=== PATIENT | female | born 1965 | race African-American/Black ===

== ENCOUNTER → 2016-07-25 | Outpatient (CLI) | payer MEDICARE, MEDICAID, OTHER ==
[~2016-07-25] VITALS: Ht 162.6 cm; Wt 117.0 kg
[~2016-07-25] MED LIST: 00186-0370-20 IH; ACETAMINOPHEN W1 TA6 PO; AMOXICILLIN 50500 MG PO; ASPIRIN 32325 MG/TAB PO; FEROSUL325 MG PO; FERROUS SU325 MG/TAB PO; FERROUS SULFATE65 MG PO; FLEXERIL 1010 MG/TAB PO; GABAPENTIN100 MG PO; GLUCOPHAGE1000 MG PO; GLUCOPHAGE500 MG/TAB PO; HCTZ; HCTZ 25MG TAB25 MG PO; HYDROCHLORTHIAZIDE; KLOR-CON M2020 MEQ PO; LASIX 20MG TABL20 MG PO; LIPITOR 10MG10 MG PO; LOPRESSOR; LOPRESSOR 225 MG/TAB PO; MOBIC 7.5MG7.5 MG PO; NITROQUICK0.4 MG SL; NITROSTAT0.4 MG/TAB SL; NORCO 325 MG-51 TAB PO; NORCO 325 MG-7.1 TAB PO; PHENTERMINE15 MG PO; PROVENTIL0.09 MG/A1 IH; RT ADVAIR 128 DISKUS IH; RT ALBUTER2.5 MG/0.5; RT SPIRIVA18 MCG IH; SINGULAIR 110 MG/TAB PO; TAMOXIFEN CITRA20 MG PO; WELLBUTRIN SR150 M1 PO; XYAL5 MG PO; XYZAL5 MG PO; ZITHROMAX Z PA250 MG PO
[2016-07-25 14:04] VITALS: BP 127/67; PULSE 100
[2016-07-25 16:44] VITALS: BP 127/67; PULSE 100
== END ==
LOC: LIGHT 10:27
DX: E78.4 Other hyperlipidemia (principal); I10 Essential (primary) hypertension; E66.01 Morbid (severe) obesity due to excess calories; Z68.41 Body mass index [BMI] 40.0-44.9, adult; M15.8 Other polyosteoarthritis

== ENCOUNTER → 2016-09-05 | Outpatient (CLI) | payer MEDICARE, MEDICAID ==
[~2016-09-05] VITALS: Ht 162.6 cm; Wt 117.0 kg
[2016-09-05 13:51] VITALS: BP 112/54; PULSE 100
[2016-09-05 17:34] VITALS: BP 112/54; PULSE 100
== END ==
LOC: LIGHT 13:45
DX: E11.65 Type 2 diabetes mellitus with hyperglycemia (principal); M54.5 Low back pain; F33.8 Other recurrent depressive disorders

== ENCOUNTER 2016-09-18 10:15 | Outpatient (RCR) | payer MEDICARE, MEDICAID, OTHER ==
[~2016-09-18 10:15] MED LIST changes: -LASIX 20MG TABL20 MG PO
== END 2016-09-26 | disposition home or self-care (01) ==
LOC: MKS.ESL.PT
DX: M54.5 Low back pain (principal); M48.07 Spinal stenosis, lumbosacral region
CPT/HCPCS: G8978-GP; G8979-GP; G8980-GP

== ENCOUNTER → 2016-10-16 | Outpatient (CLI) | payer MEDICARE, MEDICAID ==
[~2016-10-16] MED LIST changes: +LASIX 20MG TABL20 MG PO
== END ==
LOC: MC.RAD 09:00
DX: D48.61 Neoplasm of uncertain behavior of right breast (principal); C50.312 Malignant neoplasm of lower-inner quadrant of left female breast

== ENCOUNTER → 2016-10-31 | Outpatient (CLI) | payer MEDICARE, MEDICAID ==
[~2016-10-31] VITALS: Ht 162.6 cm; Wt 115.2 kg
[2016-10-31 13:21] VITALS: BP 136/71; PULSE 104
== END ==
LOC: LIGHT 10-03 11:55
DX: E78.4 Other hyperlipidemia (principal); I10 Essential (primary) hypertension; E66.01 Morbid (severe) obesity due to excess calories; Z68.41 Body mass index [BMI] 40.0-44.9, adult; M15.8 Other polyosteoarthritis

== ENCOUNTER → 2016-11-15 | Outpatient (CLI) | payer MEDICARE, MEDICAID | LOC: COL.VAS 11:15 | DX: I35.1 Nonrheumatic aortic (valve) insufficiency (principal) ==

== ENCOUNTER → 2016-11-28 | Outpatient (CLI) | payer MEDICARE, MEDICAID ==
[~2016-11-28] VITALS: Ht 162.6 cm; Wt 116.1 kg
[2016-11-28 13:55] VITALS: BP 124/50; PULSE 88
== END ==
LOC: LIGHT 09:50
DX: E78.5 Hyperlipidemia, unspecified (principal); I10 Essential (primary) hypertension; E66.01 Morbid (severe) obesity due to excess calories; Z68.41 Body mass index [BMI] 40.0-44.9, adult; M15.9 Polyosteoarthritis, unspecified

== ENCOUNTER → 2017-01-02 | Outpatient (CLI) | payer MEDICARE, MEDICAID ==
[~2017-01-02] VITALS: Ht 162.6 cm; Wt 115.4 kg
[2017-01-02 12:47] VITALS: BP 129/73; PULSE 97
== END ==
LOC: LIGHT 08:48
DX: E78.5 Hyperlipidemia, unspecified (principal); I10 Essential (primary) hypertension; E66.01 Morbid (severe) obesity due to excess calories; Z68.41 Body mass index [BMI] 40.0-44.9, adult; Z71.3 Dietary counseling and surveillance; M15.9 Polyosteoarthritis, unspecified

== ENCOUNTER → 2017-01-30 | Outpatient (CLI) | payer MEDICARE, MEDICAID ==
[~2017-01-30] VITALS: Ht 162.6 cm; Wt 115.0 kg
[2017-01-30 13:30] VITALS: BP 130/64; PULSE 76
== END ==
LOC: LIGHT 09:09
DX: E78.5 Hyperlipidemia, unspecified (principal); I10 Essential (primary) hypertension; E66.01 Morbid (severe) obesity due to excess calories; Z68.41 Body mass index [BMI] 40.0-44.9, adult; Z71.3 Dietary counseling and surveillance; M15.9 Polyosteoarthritis, unspecified

== ENCOUNTER 2017-03-20 06:41 | Day surgery (SDC) | payer MEDICARE, MEDICAID ==
[~2017-03-20] VITALS: Ht 162.6 cm; Wt 112.5 kg
[~2017-03-20 06:41] MED LIST changes: -LASIX 20MG TABL20 MG PO
[2017-03-20] MEDS ORDERED: LASIX 20MG TABL20 MG PO (07:01)
[2017-03-20 07:10] VITALS: BP 118/88; PULSE 100; TEMP 97.6
[2017-03-20 08:07] VITALS: BP 101/89; PULSE 89; TEMP 97.5
[2017-03-20 08:22] VITALS: BP 108/73; PULSE 93
[2017-03-20 08:37] VITALS: BP 119/60; PULSE 85
== END 2017-03-20 08:50 | disposition home or self-care (01) ==
LOC: SDCO 06:41
DX: Z12.11 Encounter for screening for malignant neoplasm of colon (principal); K57.30 Diverticulosis of large intestine without perforation or abscess without bleeding; E66.09 Other obesity due to excess calories; Z68.41 Body mass index [BMI] 40.0-44.9, adult; I10 Essential (primary) hypertension; I25.10 Atherosclerotic heart disease of native coronary artery without angina pectoris; Z95.5 Presence of coronary angioplasty implant and graft; I25.2 Old myocardial infarction; J44.9 Chronic obstructive pulmonary disease, unspecified; G47.33 Obstructive sleep apnea (adult) (pediatric); E11.9 Type 2 diabetes mellitus without complications; Z79.84 Long term (current) use of oral hypoglycemic drugs; F41.9 Anxiety disorder, unspecified; Z85.3 Personal history of malignant neoplasm of breast
CPT/HCPCS: OP; J2704; J7030

== ENCOUNTER → 2017-04-03 | Outpatient (CLI) | payer MEDICARE, MEDICAID ==
[~2017-04-03] VITALS: Ht 162.6 cm; Wt 111.8 kg
[~2017-04-03] MED LIST changes: +LASIX 20MG TABL20 MG PO
[2017-04-03 14:27] VITALS: BP 112/60; PULSE 92
== END ==
LOC: LIGHT
DX: E78.5 Hyperlipidemia, unspecified (principal); I10 Essential (primary) hypertension; E66.01 Morbid (severe) obesity due to excess calories; Z68.41 Body mass index [BMI] 40.0-44.9, adult; Z71.3 Dietary counseling and surveillance; M15.9 Polyosteoarthritis, unspecified

== ENCOUNTER → 2017-04-20 | Outpatient (CLI) | payer MEDICARE, MEDICAID | LOC: MC.RAD 10:06 | DX: C50.312 Malignant neoplasm of lower-inner quadrant of left female breast (principal); Z90.12 Acquired absence of left breast and nipple ==

== ENCOUNTER → 2017-05-29 | Outpatient (CLI) | payer MEDICARE, MEDICAID ==
[~2017-05-29] VITALS: Ht 162.6 cm; Wt 111.1 kg
[2017-05-29 14:18] VITALS: BP 98/70; PULSE 92
== END ==
LOC: LIGHT 10:16
DX: E78.5 Hyperlipidemia, unspecified (principal); I10 Essential (primary) hypertension; E66.01 Morbid (severe) obesity due to excess calories; Z68.41 Body mass index [BMI] 40.0-44.9, adult; Z71.3 Dietary counseling and surveillance; M15.9 Polyosteoarthritis, unspecified

== ENCOUNTER → 2017-07-03 | Outpatient (CLI) | payer MEDICARE, MEDICAID ==
[~2017-07-03] VITALS: Ht 162.6 cm; Wt 111.1 kg
[2017-07-03 13:34] VITALS: BP 128/60; PULSE 68
== END ==
LOC: LIGHT 10:22
DX: E78.5 Hyperlipidemia, unspecified (principal); I10 Essential (primary) hypertension; E66.01 Morbid (severe) obesity due to excess calories; Z68.41 Body mass index [BMI] 40.0-44.9, adult; Z71.3 Dietary counseling and surveillance; M15.9 Polyosteoarthritis, unspecified

== ENCOUNTER → 2017-07-31 | Outpatient (CLI) | payer MEDICARE, MEDICAID ==
[~2017-07-31] VITALS: Ht 162.6 cm; Wt 112.0 kg
[2017-07-31 15:17] VITALS: BP 110/80; PULSE 96
== END ==
LOC: LIGHT 05-01 10:26
DX: E78.5 Hyperlipidemia, unspecified (principal); I10 Essential (primary) hypertension; E66.01 Morbid (severe) obesity due to excess calories; Z68.41 Body mass index [BMI] 40.0-44.9, adult; Z71.3 Dietary counseling and surveillance; M15.9 Polyosteoarthritis, unspecified
CPT/HCPCS: G0463

== ENCOUNTER → 2017-09-04 | Outpatient (CLI) | payer MEDICARE, MEDICAID ==
[~2017-09-04] VITALS: Ht 162.6 cm; Wt 112.9 kg
[2017-09-04 14:15] VITALS: BP 100/80; PULSE 100
== END ==
LOC: LIGHT 08-28 10:05
DX: E78.5 Hyperlipidemia, unspecified (principal); I10 Essential (primary) hypertension; E66.01 Morbid (severe) obesity due to excess calories; Z68.41 Body mass index [BMI] 40.0-44.9, adult; Z71.3 Dietary counseling and surveillance; M15.9 Polyosteoarthritis, unspecified

== ENCOUNTER → 2017-10-02 | Outpatient (CLI) | payer MEDICARE, MEDICAID ==
[~2017-10-02] VITALS: Ht 162.6 cm; Wt 110.7 kg
[~2017-10-02] MED LIST changes: +TUMERIC COMPLEX PO; +ZOLOFT 50MG50 MG PO
[2017-10-02 13:28] VITALS: BP 110/82; PULSE 72
== END ==
LOC: LIGHT 11:07
DX: E78.5 Hyperlipidemia, unspecified (principal); I10 Essential (primary) hypertension; E66.01 Morbid (severe) obesity due to excess calories; Z68.41 Body mass index [BMI] 40.0-44.9, adult; Z71.3 Dietary counseling and surveillance; M15.9 Polyosteoarthritis, unspecified
CPT/HCPCS: G0463

== ENCOUNTER 2017-10-18 08:30 | Outpatient (RCR) | payer MEDICARE, MEDICAID | END 2017-10-27 07:56 | disposition home or self-care (01) | LOC: WSPT 08:30 | DX: M43.17 Spondylolisthesis, lumbosacral region (principal); M48.061 Spinal stenosis, lumbar region without neurogenic claudication; M51.36 Other intervertebral disc degeneration, lumbar region; M47.816 Spondylosis without myelopathy or radiculopathy, lumbar region; E66.9 Obesity, unspecified | CPT/HCPCS: G8978-GP; G8979-GP ==

== ENCOUNTER 2017-10-24 08:56 | Day surgery (SDC) | payer MEDICARE, MEDICAID ==
[~2017-10-24] VITALS: Ht 162.7 cm; Wt 108.5 kg
[2017-10-24] VITALS (12 sets, daily range): BP systolic 91–134; BP diastolic 65–92; PULSE 90–105; TEMP 97.2–98
[2017-10-24 09:20] LABS: HEMATOCRIT 39.2 % (37.0-47.0); HEMOGLOBIN 12.3 g/dl (12.5-16.0); MEAN CELL VOLUME 80 fl (80.0-100.0); MEAN CORPUSCULAR HEMOGLOBIN 25 pg (27.0-31.0); MEAN CORPUSCULAR HGB CONC 31 g/dl (33.0-37.0); MEAN PLATELET VOLUME 9.4 fl (7.4-10.4); PLATELET COUNT 232 K/mm3 (130-400); RED BLOOD COUNT 4.88 M/mm3 (4.10-5.30); REDCELL DISTRIBUTION WIDTH-CV 16.6 % (11.5-14.5)
[2017-10-24 09:25] LABS: PROTHROMBIN TIME 11.9 SECONDS (9.7-12.8)
[2017-10-24 09:29] LABS: CALCIUM 8.6 mg/dL (8.4-10.2); CREATININE, serum 0.86 mg/dL (0.52-1.25); POTASSIUM 3.5 mmol/L (3.4-5.0)
== END 2017-10-24 16:39 | disposition home or self-care (01) ==
LOC: COL.CAR 08:56
PROVIDERS: Internal Medicine Cardiovascular Disease
DX: I42.9 Cardiomyopathy, unspecified (principal); I25.10 Atherosclerotic heart disease of native coronary artery without angina pectoris; I08.1 Rheumatic disorders of both mitral and tricuspid valves; Z88.8 Allergy status to other drugs, medicaments and biological substances; Z91.012 Allergy to eggs; Z88.0 Allergy status to penicillin; Z79.82 Long term (current) use of aspirin; E66.01 Morbid (severe) obesity due to excess calories; Z68.41 Body mass index [BMI] 40.0-44.9, adult; I25.2 Old myocardial infarction; I10 Essential (primary) hypertension; E78.5 Hyperlipidemia, unspecified; J44.9 Chronic obstructive pulmonary disease, unspecified; M06.9 Rheumatoid arthritis, unspecified; Z85.3 Personal history of malignant neoplasm of breast; Z92.3 Personal history of irradiation; I27.20 Pulmonary hypertension, unspecified; D64.9 Anemia, unspecified; F41.9 Anxiety disorder, unspecified; Z95.5 Presence of coronary angioplasty implant and graft
CPT/HCPCS: J2250; J3010; Q9967

== ENCOUNTER → 2017-10-30 | Outpatient (CLI) | payer MEDICARE, MEDICAID ==
[~2017-10-30] VITALS: Ht 162.7 cm; Wt 108.4 kg
[2017-10-30 13:31] VITALS: BP 118/70; PULSE 96
== END ==
LOC: LIGHT 13:16
DX: E78.5 Hyperlipidemia, unspecified (principal); I10 Essential (primary) hypertension; E66.01 Morbid (severe) obesity due to excess calories; Z68.41 Body mass index [BMI] 40.0-44.9, adult; Z71.3 Dietary counseling and surveillance; M15.9 Polyosteoarthritis, unspecified
CPT/HCPCS: G0463

== ENCOUNTER → 2017-11-27 | Outpatient (CLI) | payer MEDICARE, MEDICAID ==
[~2017-11-27] VITALS: Ht 162.7 cm; Wt 108.0 kg
[~2017-11-27] MED LIST changes: +COREG 3.123.125 MG/T PO; +VASOTEC 2.2.5 MG/TAB PO
[2017-11-27 13:54] VITALS: BP 104/84; PULSE 60
== END ==
LOC: LIGHT 13:53
DX: E78.5 Hyperlipidemia, unspecified (principal); I10 Essential (primary) hypertension; E66.01 Morbid (severe) obesity due to excess calories; Z68.41 Body mass index [BMI] 40.0-44.9, adult; Z71.3 Dietary counseling and surveillance; M15.9 Polyosteoarthritis, unspecified
CPT/HCPCS: G0463

== ENCOUNTER → 2018-01-01 | Outpatient (CLI) | payer MEDICARE, MEDICAID ==
[~2018-01-01] VITALS: Ht 162.6 cm; Wt 107.0 kg
[2018-01-01 13:40] VITALS: BP 96/76; PULSE 64
== END ==
LOC: LIGHT 13:09
DX: E78.5 Hyperlipidemia, unspecified (principal); I10 Essential (primary) hypertension; E66.01 Morbid (severe) obesity due to excess calories; Z68.41 Body mass index [BMI] 40.0-44.9, adult; Z71.3 Dietary counseling and surveillance; M15.9 Polyosteoarthritis, unspecified
CPT/HCPCS: G0463

== ENCOUNTER → 2018-01-29 | Outpatient (CLI) | payer MEDICARE, MEDICAID ==
[~2018-01-29] VITALS: Ht 162.6 cm; Wt 107.5 kg
[~2018-01-29] MED LIST changes: -ASPIRIN 32325 MG/TAB PO; +ASPIRIN E.C. 8181 MG PO
[2018-01-29 14:16] VITALS: BP 96/70; PULSE 64
== END ==
LOC: LIGHT 14:06
DX: E78.5 Hyperlipidemia, unspecified (principal); I10 Essential (primary) hypertension; E66.01 Morbid (severe) obesity due to excess calories; Z68.41 Body mass index [BMI] 40.0-44.9, adult; Z71.3 Dietary counseling and surveillance; M15.9 Polyosteoarthritis, unspecified
CPT/HCPCS: G0463

== ENCOUNTER → 2018-03-05 | Outpatient (CLI) | payer MEDICARE, MEDICAID ==
[~2018-03-05] VITALS: Ht 162.6 cm; Wt 103.9 kg
[2018-03-05 14:53] VITALS: BP 100/60; PULSE 88
== END ==
LOC: LIGHT 11:18
DX: E78.5 Hyperlipidemia, unspecified (principal); I10 Essential (primary) hypertension; M15.9 Polyosteoarthritis, unspecified; E66.01 Morbid (severe) obesity due to excess calories; Z68.39 Body mass index [BMI] 39.0-39.9, adult; Z71.3 Dietary counseling and surveillance
CPT/HCPCS: G0463

== ENCOUNTER 2018-03-21 11:15 | Outpatient (RCR) | payer MEDICARE, MEDICAID | END 2018-03-26 | disposition home or self-care (01) | LOC: WSPT | DX: M17.0 Bilateral primary osteoarthritis of knee (principal); M16.0 Bilateral primary osteoarthritis of hip; E66.01 Morbid (severe) obesity due to excess calories; M43.17 Spondylolisthesis, lumbosacral region; M48.00 Spinal stenosis, site unspecified; M53.80 Other specified dorsopathies, site unspecified | CPT/HCPCS: G8978-GP; G8979-GP ==

== ENCOUNTER → 2018-04-23 | Outpatient (CLI) | payer MEDICARE, MEDICAID ==
[~2018-04-23] VITALS: Ht 162.6 cm; Wt 104.8 kg
[2018-04-23 15:47] VITALS: BP 96/70; PULSE 81
== END ==
LOC: LIGHT 13:28
DX: E78.5 Hyperlipidemia, unspecified (principal); I10 Essential (primary) hypertension; M15.9 Polyosteoarthritis, unspecified; E66.01 Morbid (severe) obesity due to excess calories; Z68.39 Body mass index [BMI] 39.0-39.9, adult; Z71.3 Dietary counseling and surveillance
CPT/HCPCS: G0463

== ENCOUNTER → 2018-05-30 | Outpatient (CLI) | payer MEDICARE, MEDICAID | LOC: MC.RAD 11:12 | DX: Z12.31 Encounter for screening mammogram for malignant neoplasm of breast (principal); Z85.3 Personal history of malignant neoplasm of breast; Z98.890 Other specified postprocedural states; Z90.12 Acquired absence of left breast and nipple ==

== ENCOUNTER → 2018-06-04 | Outpatient (CLI) | payer MEDICARE, MEDICAID ==
[~2018-06-04] VITALS: Ht 162.6 cm; Wt 104.6 kg
[2018-06-04 14:03] VITALS: BP 110/54; PULSE 100
== END ==
LOC: LIGHT 08:57
DX: E78.5 Hyperlipidemia, unspecified (principal); I10 Essential (primary) hypertension; M15.9 Polyosteoarthritis, unspecified; E66.01 Morbid (severe) obesity due to excess calories; Z68.39 Body mass index [BMI] 39.0-39.9, adult; Z71.3 Dietary counseling and surveillance
CPT/HCPCS: G0463

== ENCOUNTER → 2018-07-02 | Outpatient (CLI) | payer MEDICARE, MEDICAID ==
[~2018-07-02] VITALS: Ht 162.6 cm; Wt 105.0 kg
[2018-07-02 13:41] VITALS: BP 96/70; PULSE 68
== END ==
LOC: LIGHT 13:31
DX: E78.5 Hyperlipidemia, unspecified (principal); I10 Essential (primary) hypertension; M15.9 Polyosteoarthritis, unspecified; E66.01 Morbid (severe) obesity due to excess calories; Z68.39 Body mass index [BMI] 39.0-39.9, adult; Z71.3 Dietary counseling and surveillance
CPT/HCPCS: G0463

== ENCOUNTER → 2018-08-06 | Outpatient (CLI) | payer MEDICARE, MEDICAID ==
[~2018-08-06] VITALS: Ht 162.6 cm; Wt 106.4 kg
[2018-08-06 14:46] VITALS: BP 110/82; PULSE 76
== END ==
LOC: LIGHT 08:36
DX: E78.5 Hyperlipidemia, unspecified (principal); I10 Essential (primary) hypertension; M15.9 Polyosteoarthritis, unspecified; E66.01 Morbid (severe) obesity due to excess calories; Z68.41 Body mass index [BMI] 40.0-44.9, adult; Z71.3 Dietary counseling and surveillance
CPT/HCPCS: G0463

== ENCOUNTER → 2018-08-27 | Outpatient (CLI) | payer MEDICARE, MEDICAID ==
[~2018-08-27] VITALS: Ht 162.6 cm; Wt 106.6 kg
[2018-08-27 14:04] VITALS: BP 106/50; PULSE 60
== END ==
LOC: LIGHT 13:54
DX: E78.5 Hyperlipidemia, unspecified (principal); I10 Essential (primary) hypertension; M15.9 Polyosteoarthritis, unspecified; E66.01 Morbid (severe) obesity due to excess calories; Z68.41 Body mass index [BMI] 40.0-44.9, adult; Z71.3 Dietary counseling and surveillance
CPT/HCPCS: G0463

== ENCOUNTER → 2018-10-01 | Outpatient (CLI) | payer MEDICARE, MEDICAID ==
[~2018-10-01] VITALS: Ht 162.6 cm; Wt 104.6 kg
[2018-10-01 14:01] VITALS: BP 100/60; PULSE 60
== END ==
LOC: LIGHT 09:55
DX: E78.5 Hyperlipidemia, unspecified (principal); I10 Essential (primary) hypertension; M15.9 Polyosteoarthritis, unspecified; E66.01 Morbid (severe) obesity due to excess calories; Z68.39 Body mass index [BMI] 39.0-39.9, adult; Z71.3 Dietary counseling and surveillance
CPT/HCPCS: G0463

== ENCOUNTER → 2018-10-29 | Outpatient (CLI) | payer MEDICARE, MEDICAID ==
[~2018-10-29] VITALS: Ht 162.6 cm; Wt 109.1 kg
[2018-10-29 13:10] VITALS: BP 120/100; PULSE 72
== END ==
LOC: LIGHT 10:39
DX: E78.5 Hyperlipidemia, unspecified (principal); I10 Essential (primary) hypertension; M15.9 Polyosteoarthritis, unspecified; E66.01 Morbid (severe) obesity due to excess calories; Z68.41 Body mass index [BMI] 40.0-44.9, adult; Z71.3 Dietary counseling and surveillance
CPT/HCPCS: G0463

== ENCOUNTER → 2018-12-03 | Outpatient (CLI) | payer MEDICARE, MEDICAID ==
[~2018-12-03] VITALS: Ht 162.6 cm; Wt 105.7 kg
[2018-12-03 13:22] VITALS: BP 110/80; PULSE 100
== END ==
LOC: LIGHT 13:11
DX: E78.5 Hyperlipidemia, unspecified (principal); I10 Essential (primary) hypertension; M15.9 Polyosteoarthritis, unspecified; E66.01 Morbid (severe) obesity due to excess calories; Z68.41 Body mass index [BMI] 40.0-44.9, adult; Z71.3 Dietary counseling and surveillance
CPT/HCPCS: G0463

== ENCOUNTER 2018-12-18 12:02 | Emergency (ER) | payer MEDICARE, MEDICAID ==
[~2018-12-18] VITALS: Ht 162.6 cm; Wt 103.6 kg
[2018-12-18 12:12] VITALS: TEMP 98.8
[2018-12-18 12:38] LABS: BASO % 0.5 % (0.0-2.0); EOS # 0.6 (0.0-0.7); EOS % 13.1 % (0-4.0); GRAN # 2.4 (1.4-6.5); GRAN % 57.6 % (42.2-75.2); HEMATOCRIT 39.4 % (37.0-47.0); HEMOGLOBIN 12.6 g/dl (12.5-16.0); LYMPH # 0.8 (1.2-3.4); LYMPH % 19.8 % (20.0-51.0); MEAN CELL VOLUME 88 fl (80.0-100.0); MEAN CORPUSCULAR HEMOGLOBIN 28 pg (27.0-31.0); MEAN CORPUSCULAR HGB CONC 32 g/dl (33.0-37.0); MEAN PLATELET VOLUME 9.3 fl (7.4-10.4); MONO # 0.4 (0.1-0.6); MONO % 8.8 % (1.7-9.3); PLATELET COUNT 229 K/mm3 (130-400); RED BLOOD COUNT 4.49 M/mm3 (4.10-5.30); REDCELL DISTRIBUTION WIDTH-CV 12.8 % (11.5-14.5)
[2018-12-18 13:02] LABS: ALANINE AMINOTRANSFERASE < 6 U/L (9-52); ALBUMIN 3.6 gm/dL (3.5-5.0); ALKALINE PHOSPHATASE 69 U/L (50-136); ANION GAP 7 mmol/L (7-16); AST,SGOT 26 U/L (15-37); BILIRUBIN,TOTAL 0.7 mg/dL (0.0-1.0); BLOOD UREA NITROGEN 14 mg/dL (7-17); CARBON DIOXIDE 27 mmol/L (22-30); CHLORIDE 106 mmol/L (98-107); CREATININE, serum 0.88 (0.52-1.25); GLUCOSE 98 mg/dL (74-106); MAGNESIUM 1.5 mg/dL (1.6-2.3); PHOSPHOROUS 4.5 mg/dL (2.5-4.5); SODIUM 140 mmol/L (137-145); TOTAL PROTEIN 7.5 gm/dL (6.4-8.2)
[2018-12-18 13:35] LABS: TROPONIN-I < 0.012 ng/mL (0.000-0.035)
[2018-12-18] MEDS ORDERED: PREDNISONE20 MG PO (15:11)
[2018-12-18 16:32] VITALS: BP 117/73; PULSE 86
== END 2018-12-18 16:34 | disposition home or self-care (01) ==
LOC: COL.ER 12:02
PROVIDERS: Emergency Medicine
DX: J44.1 Chronic obstructive pulmonary disease with (acute) exacerbation (principal); E11.9 Type 2 diabetes mellitus without complications; I50.9 Heart failure, unspecified; I25.10 Atherosclerotic heart disease of native coronary artery without angina pectoris; Z79.82 Long term (current) use of aspirin
CPT/HCPCS: J3475; J7512; Q9967

== ENCOUNTER → 2018-12-31 | Outpatient (CLI) | payer MEDICARE, MEDICAID ==
[~2018-12-31] VITALS: Ht 162.6 cm; Wt 106.4 kg
[~2018-12-31] MED LIST changes: +PREDNISONE20 MG PO
[2018-12-31 12:47] VITALS: BP 100/76; PULSE 88
== END ==
LOC: LIGHT 12-24 11:49
DX: E78.5 Hyperlipidemia, unspecified (principal); I10 Essential (primary) hypertension; M15.9 Polyosteoarthritis, unspecified; E66.01 Morbid (severe) obesity due to excess calories; Z68.41 Body mass index [BMI] 40.0-44.9, adult; Z71.3 Dietary counseling and surveillance
CPT/HCPCS: G0463

== ENCOUNTER → 2019-01-28 | Outpatient (CLI) | payer MEDICARE, MEDICAID ==
[~2019-01-28] VITALS: Ht 162.6 cm; Wt 106.8 kg
[2019-01-28 13:37] VITALS: BP 92/58; PULSE 76
== END ==
LOC: LIGHT 13:04
DX: E78.5 Hyperlipidemia, unspecified (principal); I10 Essential (primary) hypertension; M15.9 Polyosteoarthritis, unspecified; E66.01 Morbid (severe) obesity due to excess calories; Z68.41 Body mass index [BMI] 40.0-44.9, adult; Z71.3 Dietary counseling and surveillance
CPT/HCPCS: G0463

== ENCOUNTER → 2019-03-04 | Outpatient (CLI) | payer MEDICARE, MEDICAID ==
[~2019-03-04] VITALS: Ht 162.6 cm; Wt 108.0 kg
[2019-03-04 13:30] VITALS: BP 102/76; PULSE 84
== END ==
LOC: LIGHT 13:10
DX: E78.5 Hyperlipidemia, unspecified (principal); I10 Essential (primary) hypertension; M15.9 Polyosteoarthritis, unspecified; E66.01 Morbid (severe) obesity due to excess calories; Z68.41 Body mass index [BMI] 40.0-44.9, adult; Z71.3 Dietary counseling and surveillance
CPT/HCPCS: G0463

== ENCOUNTER → 2019-04-01 | Outpatient (CLI) | payer MEDICARE, MEDICAID ==
[~2019-04-01] VITALS: Ht 162.6 cm; Wt 107.3 kg
[2019-04-01 14:33] VITALS: BP 94/66; PULSE 72
== END ==
LOC: LIGHT 11:32
DX: E78.5 Hyperlipidemia, unspecified (principal); I10 Essential (primary) hypertension; M15.9 Polyosteoarthritis, unspecified; E66.01 Morbid (severe) obesity due to excess calories; Z68.41 Body mass index [BMI] 40.0-44.9, adult; Z71.3 Dietary counseling and surveillance
CPT/HCPCS: G0463

== ENCOUNTER → 2019-04-29 | Outpatient (CLI) | payer MEDICARE, MEDICAID ==
[~2019-04-29] VITALS: Ht 162.6 cm; Wt 108.9 kg
[2019-04-29 14:13] VITALS: BP 110/70; PULSE 96
== END ==
LOC: LIGHT 14:08
DX: E78.5 Hyperlipidemia, unspecified (principal); I10 Essential (primary) hypertension; M15.9 Polyosteoarthritis, unspecified; E66.01 Morbid (severe) obesity due to excess calories; Z68.41 Body mass index [BMI] 40.0-44.9, adult; Z71.3 Dietary counseling and surveillance
CPT/HCPCS: G0463

== ENCOUNTER 2019-05-06 13:00 | Outpatient (RCR) | payer MEDICARE, MEDICAID | END 2019-05-07 | disposition still patient (30) | LOC: WSC | DX: M54.5 Low back pain (principal); M25.569 Pain in unspecified knee ==

== ENCOUNTER → 2019-05-27 | Outpatient (CLI) | payer MEDICARE, MEDICAID ==
[~2019-05-27] VITALS: Ht 162.6 cm; Wt 106.4 kg
[2019-05-27 14:14] VITALS: BP 90/70; PULSE 108
== END ==
LOC: LIGHT 13:56
DX: E78.5 Hyperlipidemia, unspecified (principal); I10 Essential (primary) hypertension; M15.9 Polyosteoarthritis, unspecified; E66.01 Morbid (severe) obesity due to excess calories; Z68.41 Body mass index [BMI] 40.0-44.9, adult; Z71.3 Dietary counseling and surveillance
CPT/HCPCS: G0463

== ENCOUNTER → 2019-06-04 | Outpatient (CLI) | payer MEDICARE, MEDICAID | LOC: MC.RAD 06-02 09:15 | DX: Z12.31 Encounter for screening mammogram for malignant neoplasm of breast (principal); Z98.890 Other specified postprocedural states; Z98.82 Breast implant status; Z85.3 Personal history of malignant neoplasm of breast ==

== ENCOUNTER → 2019-09-02 | Outpatient (CLI) | payer MEDICARE, MEDICAID ==
[~2019-09-02] VITALS: Ht 162.6 cm; Wt 105.9 kg
[2019-09-02 13:18] VITALS: BP 94/70; PULSE 88
== END ==
LOC: LIGHT 13:10
DX: Z68.41 Body mass index [BMI] 40.0-44.9, adult (principal); E78.5 Hyperlipidemia, unspecified; I10 Essential (primary) hypertension
CPT/HCPCS: G0463

== ENCOUNTER → 2019-09-30 | Outpatient (CLI) | payer MEDICARE, MEDICAID ==
[~2019-09-30] VITALS: Ht 162.6 cm; Wt 106.4 kg
[2019-09-30 13:26] VITALS: BP 110/60; PULSE 88
== END ==
LOC: LIGHT 10:39
DX: Z68.41 Body mass index [BMI] 40.0-44.9, adult (principal); E78.5 Hyperlipidemia, unspecified; I10 Essential (primary) hypertension
CPT/HCPCS: G0463

== ENCOUNTER → 2020-01-06 | Outpatient (CLI) | payer MEDICARE, MEDICAID ==
[~2020-01-06] VITALS: Ht 162.6 cm; Wt 108.9 kg
[2020-01-06 14:38] VITALS: BP 90/60; PULSE 64
== END ==
LOC: LIGHT 13:28
DX: E66.01 Morbid (severe) obesity due to excess calories (principal); Z68.41 Body mass index [BMI] 40.0-44.9, adult; I10 Essential (primary) hypertension; E78.5 Hyperlipidemia, unspecified
CPT/HCPCS: G0463

== ENCOUNTER → 2020-02-03 | Outpatient (CLI) | payer MEDICARE, MEDICAID ==
[~2020-02-03] VITALS: Ht 162.6 cm; Wt 108.6 kg
[2020-02-03 15:11] VITALS: BP 118/80; PULSE 80
== END ==
LOC: LIGHT 11:45
DX: E66.01 Morbid (severe) obesity due to excess calories (principal); Z68.41 Body mass index [BMI] 40.0-44.9, adult; E78.5 Hyperlipidemia, unspecified; I10 Essential (primary) hypertension
CPT/HCPCS: G0463

== ENCOUNTER → 2020-03-02 | Outpatient (CLI) | payer MEDICARE, MEDICAID ==
[~2020-03-02] VITALS: Ht 162.6 cm; Wt 109.1 kg
[2020-03-02 13:36] VITALS: BP 106/70; PULSE 80
== END ==
LOC: LIGHT 10:39
DX: E66.01 Morbid (severe) obesity due to excess calories (principal); Z68.41 Body mass index [BMI] 40.0-44.9, adult; E78.5 Hyperlipidemia, unspecified; I10 Essential (primary) hypertension
CPT/HCPCS: G0463

== ENCOUNTER → 2020-03-23 | Outpatient (CLI) | payer MEDICARE, MEDICAID ==
[~2020-03-23] VITALS: Ht 162.6 cm; Wt 110.7 kg
[2020-03-23 13:09] VITALS: BP 102/76; PULSE 92
== END ==
LOC: LIGHT 13:00
DX: E66.01 Morbid (severe) obesity due to excess calories (principal); Z68.41 Body mass index [BMI] 40.0-44.9, adult; E78.5 Hyperlipidemia, unspecified; I10 Essential (primary) hypertension
CPT/HCPCS: G0463

== ENCOUNTER → 2020-04-27 | Outpatient (CLI) | payer MEDICARE, MEDICAID ==
[~2020-04-27] VITALS: Ht 162.6 cm; Wt 112.3 kg
[2020-04-27 13:02] VITALS: BP 116/84; PULSE 72
== END ==
LOC: LIGHT 12:53
DX: E66.01 Morbid (severe) obesity due to excess calories (principal); Z68.41 Body mass index [BMI] 40.0-44.9, adult; E78.5 Hyperlipidemia, unspecified; I10 Essential (primary) hypertension
CPT/HCPCS: G0463

== ENCOUNTER → 2020-05-25 | Outpatient (CLI) | payer MEDICARE, MEDICAID ==
[~2020-05-25] VITALS: Ht 162.6 cm; Wt 109.3 kg
[2020-05-25 13:10] VITALS: BP 108/80; PULSE 80
== END ==
LOC: LIGHT 13:00
DX: E66.01 Morbid (severe) obesity due to excess calories (principal); Z68.41 Body mass index [BMI] 40.0-44.9, adult; E78.5 Hyperlipidemia, unspecified; I10 Essential (primary) hypertension
CPT/HCPCS: G0463

== ENCOUNTER → 2020-06-07 | Outpatient (CLI) | payer MEDICARE, MEDICAID | LOC: MC.RAD 09:00 | DX: Z12.31 Encounter for screening mammogram for malignant neoplasm of breast (principal); Z85.3 Personal history of malignant neoplasm of breast ==

== ENCOUNTER 2021-08-29 14:31 | Emergency (ER) | payer MEDICARE, MEDICAID ==
[~2021-08-29] VITALS: Ht 162.6 cm; Wt 96.8 kg
[2021-08-29 15:05] VITALS: TEMP 98.5
[2021-08-29] MEDS ORDERED: CEPHALEXIN500 M1 PO (16:57)
[2021-08-29] MEDS ORDERED: BACTRIM DS 8001 TAB PO (16:57)
[2021-08-29 17:05] VITALS: BP 132/61; PULSE 80
== END 2021-08-29 17:10 | disposition home or self-care (01) ==
LOC: COL.ER 14:31
DX: Z48.817 Encounter for surgical aftercare following surgery on the skin and subcutaneous tissue (principal); E11.9 Type 2 diabetes mellitus without complications; J44.9 Chronic obstructive pulmonary disease, unspecified; I10 Essential (primary) hypertension; I25.2 Old myocardial infarction; Z79.84 Long term (current) use of oral hypoglycemic drugs; Z79.899 Other long term (current) drug therapy; Z79.51 Long term (current) use of inhaled steroids; Z79.82 Long term (current) use of aspirin

== ENCOUNTER 2021-11-09 07:17 | Day surgery (SDC) | payer MEDICARE, MEDICAID ==
[~2021-11-09] VITALS: Ht 162.6 cm; Wt 96.6 kg
[~2021-11-09 07:17] MED LIST changes: +BACTRIM DS 8001 TAB PO; +CEPHALEXIN500 M1 PO; -TUMERIC COMPLEX PO; +[UNRECOGNIZED DRUG - OTHER] PO
[2021-11-09] MEDS ORDERED: FLUOCINOLONE TP (08:10)
[2021-11-09] MEDS ORDERED: PROTOP 0.03% 30GM TP (08:11)
[2021-11-09] MEDS ORDERED: VITAMIN C500 MG (08:12)
[2021-11-09] MEDS ORDERED: PROAIR HFA0.09 MG/AC IH (08:13)
[2021-11-09] MEDS ORDERED: TAMOXIFEN CITRA20 MG PO (08:14)
[2021-11-09] MEDS ORDERED: BENADRYL50 MG PO (08:15)
[2021-11-09] MEDS ORDERED: FLONASEALLERGY NS (08:17)
[2021-11-09 08:20] VITALS: BP 109/66; PULSE 89; TEMP 97.9
[2021-11-09 09:35] VITALS: BP 104/72; PULSE 87; TEMP 97.6
--- NOTE | 2021-11-09 09:35 | NUR ---
PT TO BAY 3 PER CART FROM ENDO ROOM. RECEIVED REPORT FROM WILFRIDO VALENTE. VS OBTAINED. CALL LIGHT WITHIN REACH. PT REQUESTING APPLE JUICE. WILL CONTINUE TO MONITOR.
[2021-11-09 09:50] VITALS: BP 114/77; PULSE 84
--- NOTE | 2021-11-09 09:50 | NUR ---
PT DENIES ANYTHING TO EAT. TOLERATED APPLE JUICE WITHOUT DIFFICULTY. PT STATES SHE IS READY FOR DISCHARGE. DENIES ANY ADDITIONAL NEEDS AT THIS TIME.
--- NOTE | 2021-11-09 09:55 | NUR ---
IV DC'D. PT TOLERATED WITHOUT DIFFICULTY.
--- NOTE | 2021-11-09 10:05 | NUR ---
DISCHARGE EDUCATION COMPLETED WITH PT AND HER GENOVEVA. VERBALIZED UNDERSTANDING OF HOME AND FOLLOW UP CARE. ALL QUESTIONS ANSWERED. DISCHARGE PAPERWORK GIVEN TO PT.
--- NOTE | 2021-11-09 10:10 | NUR ---
PT OFF UNIT PER WHEELCHAIR. PT DISCHARGE TO HOME WITH ROSEY-GENOVEVA PER PERSONAL VEHICLE.
== END 2021-11-09 10:10 | disposition home or self-care (01) ==
LOC: SDCO 07:17
DX: D50.9 Iron deficiency anemia, unspecified (principal); K22.11 Ulcer of esophagus with bleeding; K29.50 Unspecified chronic gastritis without bleeding; K44.9 Diaphragmatic hernia without obstruction or gangrene; K22.4 Dyskinesia of esophagus; K57.30 Diverticulosis of large intestine without perforation or abscess without bleeding; R19.5 Other fecal abnormalities; E66.01 Morbid (severe) obesity due to excess calories; I42.9 Cardiomyopathy, unspecified; E11.9 Type 2 diabetes mellitus without complications; Z79.84 Long term (current) use of oral hypoglycemic drugs; Z79.899 Other long term (current) drug therapy; Z85.3 Personal history of malignant neoplasm of breast; Z68.41 Body mass index [BMI] 40.0-44.9, adult
CPT/HCPCS: J2704; J3010; J7120

== ENCOUNTER → 2022-05-10 | Outpatient (CLI) | payer MEDICARE, MEDICAID ==
[~2022-05-10] MED LIST changes: +BENADRYL50 MG PO; +ELIQUIS 5MG PO; +FLONASEALLERGY NS; +FLUOCINOLONE TP; +PROAIR HFA0.09 MG/AC IH; +PROTOP 0.03% 30GM TP; +VITAMIN C500 MG PO
== END ==
LOC: COL.RAD 11:15
DX: R60.0 Localized edema (principal); M16.0 Bilateral primary osteoarthritis of hip; M17.12 Unilateral primary osteoarthritis, left knee
CPT/HCPCS: Q9967

== ENCOUNTER → 2022-05-17 | Outpatient (CLI) | payer MEDICARE, MEDICAID ==
[~2022-05-17] VITALS: Ht 160 cm; Wt 120.0 kg
[2022-05-17 09:58] VITALS: BP 114/72; PULSE 93; TEMP 98.2
[2022-05-17 11:50] VITALS: BP 111/57; PULSE 93
== END ==
LOC: COL.RAD 09:24
DX: R59.0 Localized enlarged lymph nodes (principal); Z85.3 Personal history of malignant neoplasm of breast; R60.0 Localized edema
CPT/HCPCS: 27939

== ENCOUNTER 2022-06-29 08:30 | Outpatient (RCR) | payer MEDICARE, MEDICAID ==
[2022-09-20] MEDS ORDERED: TURMERIC500 MG PO (14:15)
[2022-09-20] MEDS ORDERED: SINGULAIR 110 MG/TAB PO (14:49)
[2022-09-20] MEDS ORDERED: OPTIVAR 6 ML 6 M6 ML OP (14:49)
[2022-09-20] MEDS ORDERED: PROTONIX 40MG T40 MG PO (14:50)
[2022-09-20] MEDS ORDERED: VENTOLIN0.09 MG IH (14:51)
[2022-09-20] MEDS ORDERED: NATURAL E400 IU PO (14:52)
[2022-09-20] MEDS ORDERED: NORCO 325 MG-51 TAB PO (16:49)
[2023-03-27] MEDS ORDERED: VITAMIN D362.5 MC1 PO (14:28)
[2023-05-22] MEDS ORDERED: DUPIXENT P300 MG/2 M SQ (13:44)
== END 2022-07-22 | disposition home or self-care (01) ==
LOC: WSPT
DX: I89.0 Lymphedema, not elsewhere classified (principal)

== ENCOUNTER 2022-08-17 11:17 | Outpatient (CLI) | payer MEDICARE, MEDICAID ==
[~2022-08-17] VITALS: Ht 162.6 cm; Wt 106.8 kg
[2022-08-17 12:05] VITALS: BP 99/60; PULSE 72; TEMP 97.7
== END 2022-08-17 17:01 | disposition home or self-care (01) ==
LOC: EUO 11:17
DX: D50.9 Iron deficiency anemia, unspecified (principal)
CPT/HCPCS: J1756

== ENCOUNTER → 2022-09-06 | Outpatient (CLI) | payer MEDICARE, MEDICAID | LOC: COL.RAD 11:00 | DX: C50.919 Malignant neoplasm of unspecified site of unspecified female breast (principal); K40.90 Unilateral inguinal hernia, without obstruction or gangrene, not specified as recurrent; N85.2 Hypertrophy of uterus | CPT/HCPCS: Q9967 ==

== ENCOUNTER 2022-09-27 11:43 | Outpatient (RCR) | payer MEDICARE, MEDICAID ==
[~2022-09-27] VITALS: Ht 162.6 cm; Wt 106.0 kg
[~2022-09-27 11:43] MED LIST changes: +NATURAL E400 IU PO; +OPTIVAR 6 ML 6 M6 ML OP; +PROTONIX 40MG T40 MG PO; +TURMERIC500 MG PO; +VENTOLIN0.09 MG IH
[2022-09-27 11:46] VITALS: BP 100/62; PULSE 60; TEMP 98.5
== END 2022-09-27 12:31 ==
LOC: EUO 11:43
DX: D50.9 Iron deficiency anemia, unspecified (principal)
CPT/HCPCS: J1756

== ENCOUNTER 2023-04-24 13:49 | Outpatient (RCR) | payer MEDICARE, MEDICAID ==
[~2023-04-24] VITALS: Ht 162.6 cm; Wt 91.4 kg
[~2023-04-24 13:49] MED LIST changes: +VITAMIN D362.5 MC1 PO
[2023-04-24 15:00] VITALS: BP 98/66; PULSE 91; TEMP 98.1
== END 2023-04-24 15:37 ==
LOC: EUO 13:49
DX: D50.9 Iron deficiency anemia, unspecified (principal)
CPT/HCPCS: J1756

== ENCOUNTER → 2023-09-25 | Outpatient (CLI) | payer MEDICARE ==
[~2023-09-25] MED LIST changes: +DUPIXENT P300 MG/2 M SQ
== END ==
LOC: MC.RAD 14:06
DX: Z12.31 Encounter for screening mammogram for malignant neoplasm of breast (principal)